=== PATIENT | male | born 1950 | race African-American/Black ===

== ENCOUNTER 2016-05-16 08:53 | Emergency (ER) | payer OTHER ==
[2016-05-16 09:03] VITALS: BP 113/77
[2016-05-16] MEDS ORDERED: DULCOLAX PR ONE (09:18)
--- NOTE | 2016-05-16 10:09 | Diag Imaging Result Document ---
PROCEDURE NAME: KUB ABDOMEN - 05/16/2016 X-RAY ABDOMEN, 05/16/2016: COMPARISON: CT abdomen pelvis 12/20/2014. FINDINGS: There is a nonobstructive bowel gas pattern. No free air or abnormal calcifications. IMPRESSION: No acute disease.
--- NOTE | 2016-05-16 10:16 | PROVIDER DOCUMENTATION ---
HPI-Abdominal Pain/GI Problem - General Source: patient - History of Present Illness-ABD Nature of Presenting Problems: 65 yo AAM presents to ED with cc of constipation. Pt reports being able to pass a small amount of feces but still feeling a sense a urgency after. Pt denies any abdominal pain or tenderness. Pt denies rectal bleeding and rectal pain. Upon arrival to ED, pt is in no apparent distress. Quality of Pain: reports: none Severity in ED: reports: mild Onset/Duration: reports: abrupt, 2 days ago Timing: reports: still present Activities at Onset: reports: none Exposure to sick contacts?: No Modifying Factors: improves with: nothing Associated Symptoms: reports: constipation Last BM: this morning (small amount) Dark Stools Present?: reports: none noticed Rectal Bleeding: reports: none Rectal Pain: reports: none <Tianna Weathers - Last Filed: 05/16/16 10:11> <Marilynn Urrutia - Last Filed: 05/16/16 10:29> - General Chief Complaint: Constipation Stated Complaint: ABDOMINAL PAIN Time Seen by Provider: 05/16/16 09:17 Allergies/Adverse Reactions: Patient Allergies Allergy/AdvReac Type Severity Reaction Status Date / Time No Known Allergies Allergy Verified 12/21/14 13:54 Home Medications: Home Medication List Medication Instructions Recorded Confirmed Last Taken Type Amlodipine [Norvasc] 10 mg PO DAILY 12/20/14 12/21/14 12/21/14 History Clopidogrel [Plavix] 75 mg PO DAILY 12/20/14 12/21/14 12/21/14 History Lisinopril/Hydrochlorothiazide 20 mg PO DAILY 12/20/14 12/21/14 12/21/14 History [Lisinopril-Hctz 20-25 mg Tab] Metformin E.r. [Glucophage Xr] 500 mg PO DAILY 12/20/14 12/21/14 12/20/14 History PRAVAstatin [Pravachol] 40 mg PO DAILY 12/20/14 12/21/14 12/20/14 07:00 History Hydrocodone/APAP 7.5 mg/325 mg 1 tab PO DIRECTED 12/21/14 12/21/14 12/21/14 History [[place]-7.5] Levofloxacin [Levaquin] 500 mg PO DAILY 12/21/14 12/21/14 12/21/14 History Amoxicillin/Potassium Clav 1 each PO Q12H #20 tablet 12/23/14 Unknown Rx [Augmentin 875-125 Tablet] Bisacodyl [Dulcolax] 10 mg AR DAILY #14 supp 05/16/16 Unknown Rx Review of Systems - Adult - REVIEW OF SYSTEMS - ADULT Constitutional: reports: no symptoms reported. denies: chills, fever Eyes: reports: no symptoms reported. denies: blurred vision, double vision Ears, Nose, Mouth & Throat: reports: no symptoms reported. denies: ear pain, sinus problem Cardiovascular: reports: no symptoms reported. denies: chest pain, palpitations Respiratory: reports: no symptoms reported. denies: cough, shortness of breath Gastrointestinal: reports: constipation. denies: abdominal pain, poor appetite , rectal bleeding Genitourinary: reports: no symptoms reported. denies: discharge, flank pain Musculoskeletal: reports: no symptoms reported. denies: bone pain, joint pain Integumentary: reports: no symptoms reported. denies: hives, itching Neurological: reports: no symptoms reported. denies: ataxia, numbness Psychiatric: reports: no symptoms reported. denies: anxiety, alcohol/drug dependence Endocrine: reports: no symptoms reported. denies: cold intolerance, heat intolerance Hematologic/Lymphatic: reports: no symptoms reported. denies: blood clots, low blood count Allergic/Immunologic: reports: no symptoms reported. denies: allergic reactions , food allergy All Other Systems: Reviewed and Negative <Tianna Weathers - Last Filed: 05/16/16 10:11> Past History - Adult - PAST MEDICAL HISTORY-ADULT Review of Records: reports: Old Records Reviewed, Nursing Assessment Review, Medications Reviewed Major Childhood Illnesses: reports: denies history Cardiovascular: reports: denies history Respiratory: reports: COPD Gastrointestinal: reports: denies history Obstetrical/Gynecological: reports: denies history Genitourinary: reports: denies history Musculoskeletal: reports: arthritis Neurological: reports: denies history Psychiatric: reports: denies history Endocrine/Immune: reports: Diabetes Diabetes controlled by:: PO Meds - FAMILY HISTORY Family History: reviewed, not pertinent <Tianna Weathers - Last Filed: 05/16/16 10:11> Physical Exam-General - PHYSICAL EXAM-ADULT Initial Vital Signs Reviewed: Yes - CONSTITUTIONAL General Appearance: appears well, alert, no apparent distress - EYES Eyes: PERRL/EOMI, pink conjunctivae - HEAD, EARS, NOSE, MOUTH & THROAT HENMT: normocephalic/atraumatic, moist mucous membranes - NECK Neck: full range of motion, supple - RESPIRATORY Respiratory: chest non-tender, lungs clear, normal breath sounds - CARDIOVASCULAR Cardiovascular: normal peripheral pulses, regular rate, rhythm - GASTROINTESTINAL (ABDOMEN) Abdominal Exam: normal bowel sounds, non tender, soft - GENITOURINARY Female Genitalia/Pelvic Exam: deferred - LYMPHATIC Lymphatic: no adenopathy - MUSCULOSKELETAL Back Exam: normal inspection, no vertebral tenderness Extremity: normal range of motion, non-tender - SKIN Integumentary: normal color, normal turgor, warm/dry - NEUROLOGIC Neurologic: grossly normal, no motor/sensory deficits - PSYCHIATRIC Psych/Mental Status: normal mood/affect, normal thought content, normal thought process, oriented x 3 <Tianna Weathers - Last Filed: 05/16/16 10:11> Progress - PLAN OF CARE/RESULTS Progress/Plan/Lab Results: Vital Signs - 24 hr 05/16/16 08:59 Temperature 98.1 F Pulse Rate 73 Respiratory 18 Rate Blood Pressure 113/77 O2 Sat by Pulse 98 Oximetry Orders Category Date Time Status KUB ABDOMEN [RAD] Stat Exams 05/16/16 09:18 Draft Bisacodyl [Dulcolax] Med 05/16/16 09:18 Discontinued 20 mg AR NOW ONE - XRAY 1 XRAY Study: Abdomen Impression: Normal (nonobstructive bowel gas pattern) XRAY Interpretation: NAD <Tianna Weathers - Last Filed: 05/16/16 10:11> - REASSESSMENT Reassessment #1 Time Reassessed: 10:26 Status: other (Pt denies any other concerns except for constipation - feels laurel in his rectum.) <Marilynn Urrutia - Last Filed: 05/16/16 10:29> Departure <Tianna Weathers - Last Filed: 05/16/16 10:11> - Departure Time of Disposition Order: 10:25 Certified Medical Emergency: Emergent <Marilynn Urrutia - Last Filed: 05/16/16 10:29> - Departure DIAGNOSIS: Constipation Qualifiers: Constipation type: other constipation type Qualified Code(s): K59.09 - Other constipation Disposition: HOME 01 Condition: Stable Additional Instructions: Follow up with regualr in 2-3 days. Return to ER if start to have abd pain, or other new symptoms. Prescriptions: Bisacodyl [Dulcolax] 10 mg AR DAILY #14 supp Referrals: Danielito Castillo [Primary Care Provider] - Attestation - Scribe Verification/Attestation Scribe:: Tianna Weathers Acting as Scribe for:: Marilynn Urrutia Scribe documention review:: This chart was documented by a scribe and accurately reflects the service the provider performed and the decisions made by the provider. - Physician/ EUGENIO Attestation Patient care was provided by [facility] Provider:: No <Tianna Weathers - Last Filed: 05/16/16 10:11> Physician Attestation
== END 2016-05-16 10:38 | disposition home or self-care (01) ==
LOC: P.ED 08:53
DX: K59.09 Other constipation (principal); J44.9 Chronic obstructive pulmonary disease, unspecified; M19.90 Unspecified osteoarthritis, unspecified site; E11.9 Type 2 diabetes mellitus without complications; Z79.899 Other long term (current) drug therapy; Z79.02 Long term (current) use of antithrombotics/antiplatelets
CPT/HCPCS: 74000; 99283